=== PATIENT | female | born 1960 | race Caucasian/White ===

== ENCOUNTER 2017-03-20 11:44 | Day surgery (SDC) | payer OTHER ==
[~2017-03-20 11:44] MED LIST: ATOR40TA68 PO; BEN25 PO; BENA20TA48 PO; LANT3I SC; LOSA1TAB19 PO; PANT40TA3 PO; PRED20TA PO
== END 2017-03-22 16:07 | disposition home or self-care (01) ==
LOC: GIL 11:44
PROVIDERS: ATTEND Internal Medicine Gastroenterology
DX: Z12.11 Encounter for screening for malignant neoplasm of colon (principal); R10.10 Upper abdominal pain, unspecified; R12 Heartburn; Z79.82 Long term (current) use of aspirin; I10 Essential (primary) hypertension; E11.9 Type 2 diabetes mellitus without complications; E78.5 Hyperlipidemia, unspecified; Z90.710 Acquired absence of both cervix and uterus; Z53.9 Procedure and treatment not carried out, unspecified reason
CPT/HCPCS: 82962

== ENCOUNTER 2017-06-04 17:14 | Emergency (ER) | payer OTHER ==
[~2017-06-04] VITALS: Ht 154.9 cm; Wt 72.8 kg
[~2017-06-04 17:14] MED LIST changes: -LOSA1TAB19 PO; +LOSA1TAB22 PO
[2017-06-04 17:19] VITALS: Ht 154.9 cm; Wt 72.8 kg
[2017-06-04] MEDS ORDERED: ASPIRIN 325 MG TAB PO STA (17:32)
[2017-06-04 17:53] VITALS: BP 199/82; PULSE 84; RESP 15
[2017-06-04] MEDS ORDERED: LABETALOL HCL 20MG INJ IV ONE (18:00)
[2017-06-04] MEDS ORDERED: INSU100I33 SC (18:04)
[2017-06-04] MEDS ORDERED: ASPI-716 PO (18:06)
[2017-06-04] MEDS ORDERED: GLYB5TAB3 PO (18:06)
[2017-06-04] MEDS ORDERED: NITR0.4T39 SL (18:07)
[2017-06-04 18:17] LABS: BASOPHILS % 0.4 % (0.0-2.0); EOSINOPHILS # 0.1 10^3/ul (0.0-0.5); EOSINOPHILS % 1.4 % (0.0-7.0); HEMATOCRIT 41.7 % (37.0-47.0); HEMOGLOBIN 14.9 g/dl (12.0-16.0); LYMPHOCYTES # 2.5 10^3/ul (0.8-2.9); LYMPHOCYTES % 30.2 % (15.0-51.0); MEAN CORPUSCULAR HGB CONC 35.7 g/dl (32.0-37.0); MEAN CORPUSCULAR VOLUME 84.1 fl (82.0-101.0); MEAN PLATELET VOLUME 9.4 fl (7.4-10.4); MONOCYTE # 0.7 10^3/ul (0.3-0.9); MONOCYTES % 8.1 % (0.0-11.0); NEUTROPHIL # 4.8 10^3/ul (1.6-7.5); NEUTROPHILS % 59.8 % (39.0-77.0); PLATELET COUNT 218 10^3/UL (140-415); RED BLOOD COUNT 4.96 10^6/ul (4.20-5.40); RED CELL DISTRIBUTION WIDTH 12.2 % (11.5-14.5); WHITE BLOOD COUNT 8.1 10^3/ul (4.8-10.8)
--- NOTE | 2017-06-04 18:28 | RADRPT ---
PROCEDURE: XR Chest. CLINICAL INDICATION: Chest pain and dyspnea. TECHNIQUE: Single frontal view of the chest. COMPARISON: 08/24/2015. FINDINGS: The cardiomediastinal silhouette is within normal limits. Decreased lung inflation over interval acc entuates pulmonary vascular markings. The lungs are clear. No signs of pleural fluid or pneumothorax are seen. The osseous structures and soft tissues are unremarkable. IMPRESSION: 1. Decreased lung inflation over interval accentuates pulmonary vascular markings. 2. Otherwise, no evidence for active cardiopulmonary disease. RPTAT: [facility] Physician Brenden Date Time Electronically viewed and signed by Physician Brenden on 06/04/2017 18:28 RS/
[2017-06-04 18:45] LABS: ANION GAP 17 (8-16); BLOOD UREA NITROGEN 14 mg/dl (7-20); CALCIUM 9.5 mg/dl (8.4-10.2); CARBON DIOXIDE 27 mmol/L (21-31); CHLORIDE 98 mmol/L (97-110); CREATININE 0.78 mg/dl (0.44-1.00); GLUCOSE 224 mg/dl (70-220); POTASSIUM 3.4 mmol/L (3.5-5.1); SODIUM 139 mmol/L (135-144)
[2017-06-04 18:57] LABS: B-TYPE NATRIURETIC PEPTIDE 55 PG/ML (0-125)
[2017-06-04 18:59] LABS: TROPONIN-I < 0.012 ng/ml (0.00-0.12)
[2017-06-04] MEDS ORDERED: LABETALOL 100 MG TAB PO STA (19:41)
--- NOTE | 2017-06-04 19:53 | ERD ---
ER Documentation Chief Complaint Chief Complaint chest pain with sob and cough x 4 hrs HPI This 56-year-old female comes in for chest pain that began 4 hours prior to coming in. She also has dyspnea. The chest pain was a pressure-like sensation in the central and left chest that did not radiate. Was resolved with nitroglycerin that she took herself. She states that when her blood pressures really high this is how she feels sometimes. She is taking losartan only for her blood pressure. ROS All systems reviewed and are negative except as per history of present illness. Medications Home Meds Reported Medications Nitroglycerin* (Nitrostat*) 0.4 Mg Tab.subl, 0.4 MG SL Q5MIN Y for CHEST PAIN, BOTTLE 06/04/17 Aspirin* (Ecotrin*) 81 Mg Tablet.dr, 81 MG PO DAILY, TAB 06/04/17 Glyburide* (Glyburide*) 5 Mg Tablet, 5 MG PO WITH BREAKFAST DINNE, #60 TAB 06/04/17 Insulin Glargine,Hum.rec.anlog (Basaglar Kwikpen U-100) 100 Unit/1 Ml Insuln.pen , 35 UNIT SC QHS 06/04/17 Pantoprazole* (Protonix*) 40 Mg Tablet.dr, 40 MG PO DAILY, TAB 08/24/15 Losartan-Hydrochlorothiazide (Losartan-HCTZ) 50-12.5 Mg Tab, 1 TAB PO DAILY, TAB 08/24/15 Discontinued Reported Medications Insulin Glargine* (Lantus*) 100 Unit/Ml Soln, 35-40 UNIT SC QHS, #1 VIAL 08/24/15 Atorvastatin* (Atorvastatin*) 40 Mg Tablet, 40 MG PO QHS, #30 TAB 08/24/15 Benazepril Hcl* (Benazepril Hcl*) 20 Mg Tablet, 20 MG PO QPM, #30 TAB 08/24/15 Discontinued Scripts Diphenhydramine Hcl* (Benadryl*) 25 Mg Cap, 25 MG PO Q6 for ITCHING, #20 CAP Prov:LETHA WELLS MD 08/25/15 Prednisone* (Prednisone*) 20 Mg Tab, 40 MG PO DAILY for 4 Days, TAB Prov:LETHA WELLS MD 08/25/15 Allergies Allergies: Coded Allergies: Iodinated Contrast- Oral and IV Dye (Unverified Allergy, Unknown, 06/04/17 ) iodine (Verified Allergy, Unknown, 06/04/17) PMhx/Soc History of Surgery: Yes (hysterectomy, appendectomy) Anesthesia Reaction: No Hx Neurological Disorder: No Hx Respiratory Disorders: No Hx Cardiac Disorders: Yes (htn, hyperlipidemia) Hx Psychiatric Problems: No Hx Miscellaneous Medical Probl: Yes (DM) Hx Alcohol Use: No Hx Substance Use: No Hx Tobacco Use: No Smoking Status: Never smoker Physical Exam Vitals Vital Signs Date Time Temp Pulse Resp B/P Pulse Ox O2 Delivery O2 Flow Rate FiO2 06/04/17 17:53 84 15 199/82 100 Room Air 06/04/17 17:19 98.4 114 18 233/97 99 Physical Exam Const: [] Moderate distress Head: Atraumatic Eyes: Normal Conjunctiva ENT: Normal External Ears, Nose and Mouth. Neck: Full range of motion..~ No meningismus. Resp: Clear to auscultation bilaterally Cardio: Regular tachycardia, no murmurs Skin: No petechiae or rashes Ext: No cyanosis, or edema Neur: Awake and alert and oriented 3, no focal deficits Psych: Normal Mood and Affect Result Diagram: 06/04/17 1745 06/04/17 1745 Results 24 hrs Laboratory Tests Test 06/04/17 17:45 White Blood Count 8.110^3/ul Red Blood Count 4.9610^6/ul Hemoglobin 14.9g/dl Hematocrit 41.7% Mean Corpuscular Volume 84.1fl Mean Corpuscular Hemoglobin 30.0pg Mean Corpuscular Hemoglobin Concent 35.7g/dl Red Cell Distribution Width 12.2% Platelet Count 56596^3/UL Mean Platelet Volume 9.4fl Neutrophils % 59.8% Lymphocytes % 30.2% Monocytes % 8.1% Eosinophils % 1.4% Basophils % 0.4% Nucleated Red Blood Cells % 0.0/100WBC Neutrophils # 4.810^3/ul Lymphocytes # 2.510^3/ul Monocytes # 0.710^3/ul Eosinophils # 0.110^3/ul Basophils # 0.010^3/ul Nucleated Red Blood Cells # 0.010^3/ul Sodium Level 139mmol/L Potassium Level 3.4mmol/L Chloride Level 98mmol/L Carbon Dioxide Level 27mmol/L Anion Gap 17 Blood Urea Nitrogen 14mg/dl Creatinine 0.78mg/dl Glucose Level 224mg/dl Calcium Level 9.5mg/dl Troponin I < 0.012ng/ml B-Type Natriuretic Peptide 55PG/ML Current Medications Medications (Trade) Dose Ordered Sig/Deo Route PRN Reason Start Time Stop Time Status Last Admin Dose Admin Aspirin (Aspirin) 325 mg ONCE STAT PO 06/04/17 17:32 06/04/17 17:34 DC Labetalol HCl (Labetalol) 20 mg ONCE ONCE IV 06/04/17 18:00 06/04/17 18:01 DC Labetalol HCl (Normodyne) 100 mg ONCE STAT PO 06/04/17 19:41 06/04/17 19:42 UNV Procedures/MDM Patient presented hypertensive crisis with significant pressure-like chest pain extremely high blood pressure and tachycardia. 30 taken 325 mg aspirin and was given 20 mg of labetalol IV. This in conjunction with multiple nitroglycerin tablets that she already taken up lower her blood pressure to acceptable level. I believe the patient should be admitted for further trending of troponins, echocardiogram and cardiac consult. Patient did not want to stay in the emergency room and so that she would see her doctor tomorrow. Gave her labetalol tab in order to prevent rebound hypertension overnight once these acute medications wear off. I printed all of her results that she take with her. I see no signs of cardiac ischemia and EKG her initial troponin. She says that she will return to emergency room if she has any return of chest pain EKG interpretation: Normal sinus rhythm rate of 77, normal axis, normal intervals, no ST-T wave changes concerning for acute ischemia. Normal EKG child monitor interpretation: Initial sinus tachycardia followed normal sinus rhythm without arrhythmia Chest x-ray interpretation: I see no acute process, poor inspiration, no obvious infiltrate, no pulmonary edema, no pneumothorax or fractures Critical care time greater than 35 minutes: This includes treatment of patient hypertensive crisis with typical chest pain, treatment of multiple stable vital signs, use of vasoactive medication labetalol, multiple visits patient's bedside to reassess status, discussion at length with patient, chart review. This does not include any billable procedures Departure Diagnosis: Primary Impression: Hypertensive crisis Additional Impressions: Chest pain Hyperglycemia due to type 2 diabetes mellitus Condition: Stable Patient Instructions: Chest Pain, Uncertain Cause, Hypertension, Established, Out Of Control Additional Instructions: Llame a florentino doctor MAANA y rob yesy mikayla para el mismo da.Dle a la secretaria que le instruimos hacer esta mikayla. Llame si florentino condicin se empeora antes de la mikayla. SHERINE CHEN DO Jun 04, 2017 19:53
== END 2017-06-04 20:01 | disposition home or self-care (01) ==
LOC: E/R 17:14
DX: I16.9 Hypertensive crisis, unspecified (principal); I10 Essential (primary) hypertension; E11.65 Type 2 diabetes mellitus with hyperglycemia; R06.02 Shortness of breath; Z79.82 Long term (current) use of aspirin; Z79.4 Long term (current) use of insulin
CPT/HCPCS: 36415; 71010; 80048; 83880; 84484; 85025; 93005; Z7502; Z7610